=== PATIENT | male | born 1970 | race Two or more races ===

== ENCOUNTER 2021-05-22 15:30 | Inpatient (IN) | payer OTHER ==
[2021-05-22] MEDS ORDERED: P-EPHED 60MG/TRIPROLIDI 2.5MG TABLET PO PRN (18:18)
[2021-05-22] MEDS ORDERED: IBUPROFEN 400 MG TABLET (FP) PO PRN (18:18)
[2021-05-22] MEDS ORDERED: guaiFENesin 200 MG/10 ML 10 ML UNIT-DOSE CUPS PO PRN (18:18)
[2021-05-22] MEDS ORDERED: NICOTINE 10 MG CARTRIDGE (INHALER) IH PRN (18:18)
[2021-05-22] MEDS ORDERED: LOPERAMIDE HCL 2 MG CAPSULE PO PRN (18:18)
[2021-05-22] MEDS ORDERED: MAGNESIUM HYDROX 2400MG/30ML ORAL SUSPENSION 30 ML CUP PO PRN (18:18)
[2021-05-22] MEDS ORDERED: MAG HYDROX/AL HYDROX/SIMETH 30 ML UNIT-DOSE CUP PO PRN (18:18)
[2021-05-22] MEDS ORDERED: MAGNESIUM CITRATE 300 ML BOTTLE PO PRN (18:18)
[2021-05-22] MEDS ORDERED: ACETAMINOPHEN 325 MG TABLET (FP) PO PRN (18:18)
[2021-05-22 22:23] VITALS: BMI 21.4
[2021-05-23] MEDS: THIAMINE HCL 100 MG TABLET (FP) PO SCH ×2 (00:30→21:45)
[2021-05-23] MEDS: MELATONIN 5 MG TABLETS PO SCH ×2 (00:30→21:45)
[2021-05-23] MEDS ORDERED: TUBERCULIN PPD 5 TU/0.1ML VIAL ID ONE ×3 (00:52→13:14)
[2021-05-23] MEDS: PRENATAL VITAMINS W/ FOLIC ACID TABLET (FP) PO SCH (09:21)
[2021-05-23 10:07] LABS: HEMATOCRIT 37.4 % (35.4-49); HEMOGLOBIN 12.4 GM/dL (11.7-16.9); MCH 25.2 pg (25.7-33.7); MCHC 33.1 g/dl (32.0-35.9); PLATELET COUNT 310 10^3/uL (134-434); RBC 4.93 M/mm3 (4.00-5.60); RDW 17.9 % (11.9-15.9); WHITE BLOOD COUNT 6.8 K/mm3 (4.0-10.0)
[2021-05-23 10:10] LABS: CALCIUM 9.1 mg/dL (8.5-10.1)
[2021-05-23 10:11] LABS: ALBUMIN 2.8 g/dl (3.4-5.0); BLOOD UREA NITROGEN 18.8 mg/dL (7-18)
[2021-05-23 10:14] LABS: CREATININE 1.1 mg/dL (0.55-1.3)
[2021-05-23 10:15] LABS: BILIRUBIN,TOTAL 0.3 mg/dL (0.2-1); TOT PROT 6.4 g/dl (6.4-8.2)
[2021-05-23] MEDS ORDERED: PT OWN MED DRAWER 7, Y5N ONE (10:20)
[2021-05-23] MEDS: FLU VACC QS2021-22(6MOS UP)/PF 60 MCG/0.5 ML SYRINGE IM ONE ×2 (12:01→13:02)
[2021-05-23 17:44] LABS: URINE APPEARANCE CLEAR; URINE COLOR YELLOW
[2021-05-23 17:45] LABS: URINE BILIRUBIN NEGATIVE (NEGATIVE); URINE GLUCOSE (UA) 1+ (NEGATIVE); URINE KETONE NEGATIVE (NEGATIVE); URINE LEUK ESTERASE N (NEGATIVE); URINE NITRITE NEGATIVE (NEGATIVE); URINE PROTEIN NEGATIVE (NEGATIVE); URINE UROBILINOGEN 0.2 mg/dL (0.2-1.0); URINE WBC 0-3 /uL (0-25.8)
[2021-05-23 17:46] LABS: EPI CELLS FEW /uL (0-25.1); URINE BACTERIA TRACE /uL (0-1359)
[2021-05-23 17:48] LABS: URINE CRYSTALS FEW /hpf
[2021-05-24] MEDS: PRENATAL VITAMINS W/ FOLIC ACID TABLET (FP) PO SCH (09:58)
[2021-05-24] MEDS ORDERED: JANSSEN COVID-19 VAC,AD26/PF 0.5 ML IM ONE (10:00)
[2021-05-24] MEDS: cloNIDine HCL 0.1 MG TABLET PO PRN (12:48)
[2021-05-24] MEDS: THIAMINE HCL 100 MG TABLET (FP) PO SCH (21:05)
[2021-05-24] MEDS: MELATONIN 5 MG TABLETS PO SCH (21:06)
[2021-05-24 21:42] VITALS: TEMP 97.3
[2021-05-25] MEDS: cloNIDine HCL 0.1 MG TABLET PO PRN ×2 (06:37→20:30)
[2021-05-25] MEDS: PRENATAL VITAMINS W/ FOLIC ACID TABLET (FP) PO SCH (09:12)
[2021-05-25] MEDS ORDERED: PNEUMOCOCCAL 23 VACCINE 0.5 ML VIAL IM ONE (12:00)
[2021-05-25] MEDS: MELATONIN 5 MG TABLETS PO SCH (22:17)
[2021-05-25] MEDS: THIAMINE HCL 100 MG TABLET (FP) PO SCH (22:17)
[2021-05-26 06:50] VITALS: PULSE 100
[2021-05-26] MEDS: PRENATAL VITAMINS W/ FOLIC ACID TABLET (FP) PO SCH (09:32)
[2021-05-26] MEDS: cloNIDine HCL 0.1 MG TABLET PO PRN (11:03)
[2021-05-26 11:10] VITALS: BP 148/84
[2021-05-26] MEDS ORDERED: PNEUMOC 13-VAL CONJ-DIP CRM/PF 0.5 ML DISP.SYRIN IM ONE (12:00)
[2021-05-26] MEDS ORDERED: PNEUMOCOCCAL 23 VACCINE 0.5 ML VIAL IM ONE (12:00)
== END 2021-05-26 13:25 | disposition home or self-care (01) | DRG 895 ==
LOC: YASAS 15:30 → Y3E 23:28
PROVIDERS: ADMIT Allergy & Immunology; ATTEND Allergy & Immunology
PROC: HZ42ZZZ Group Counseling for Substance Abuse Treatment, Cognitive-Behavioral (ICD-10-PCS; principal; 2021-05-22)
DX: F14.20 Cocaine dependence, uncomplicated (principal); F12.20 Cannabis dependence, uncomplicated; F17.210 Nicotine dependence, cigarettes, uncomplicated; I10 Essential (primary) hypertension; E11.9 Type 2 diabetes mellitus without complications; Z85.01 Personal history of malignant neoplasm of esophagus; Z85.09 Personal history of malignant neoplasm of other digestive organs
CPT/HCPCS: 0031A; 36415; 80053; 81003; 82962; 85027; 86780; 90686; 91303; C9803; G0008; J0735; U0003; U0005